=== PATIENT | female | born 1955 | race American Indian/Alaskan Native ===

== ENCOUNTER 2017-09-14 13:39 | Outpatient (CLI) | payer BC ==
--- NOTE | 2017-09-14 16:22 | Mammography Report ---
Stereotactic biopsy of the right breast, specimen mammogram, marker placement, 2 view mammogram: The patient presents with outside images demonstrating a large area of the intraductal appearing calcifications in the lateral breast. An area was targeted from a lateral approach. The skin was cleansed and 1% lidocaine infiltrated through the breast. An 8-gauge biopsy probe was used to penetrate the skin confirmed targeting. 8 sections were obtained around the clock. Specimen mammography confirmed calcifications in 7 of the 8 specimens. A marker was placed followed by removal of the biopsy probe. Hand held compression applied followed a bandaging of the entrance site. Followup two-view mammogram confirmed positioning of the marker in the anterior grouping of calcifications. A small surrounding soft tissue density consistent with hematoma. The patient was given followup instructions and discharged.
--- NOTE | 2017-09-14 16:29 | History and Physical Report ---
History of Present Illness Date of examination: 09/14/17 Chief complaint: rt.breast calcs. Medications and Allergies Allergies Allergy/AdvReac Type Severity Reaction Status Date / Time No Known Allergies Allergy Verified 10/09/15 12:22 Home Medications Medication Instructions Recorded Confirmed Last Taken Type Alpha Lipoic Acid 200 mg PO BID 09/10/15 09/10/15 10/09/15 History Aspirin EC [Aspirin Enteric Coated 81 mg PO DAILY 09/10/15 10/09/15 10/09/15 History TAB] AtorvaSTATin [Lipitor] 40 mg PO HS 09/10/15 10/09/15 10/09/15 History Dexlansoprazole (Nf) [Dexilant 60 mg PO DAILY 09/10/15 10/09/15 10/09/15 History (Nf)] Docosahexanoic Acid [Algal Pierceton-3 200 mg PO DAILY 09/10/15 10/09/15 10/09/15 History Dha] Metoprolol Xl [Metoprolol 25 mg PO QDAY 09/10/15 10/09/15 10/09/15 History SUCCINATE ER TAB] Clopidogrel Bisulfate [Clopidogrel] 75 mg PO DAILY 10/09/15 10/09/15 10/09/15 History
--- NOTE | 2017-09-14 16:30 | Procedure Note ---
Date of procedure: 09/14/17 Pre-op diagnosis: rt breast calcs. Post-op diagnosis: same Procedure: stereo bx Findings: calcs. Anesthesia: local Surgeon: DENNIS QUACH Estimated blood loss: minimal Pathology: list (rt. breast bx's) Specimen disposition: to lab Condition: stable Disposition: same day
== END 2017-09-14 13:40 | disposition home or self-care (01) ==
LOC: SPVWC 13:39
PROVIDERS: ATTEND Surgery
DX: D05.11 Intraductal carcinoma in situ of right breast (principal); R92.0 Mammographic microcalcification found on diagnostic imaging of breast; Z79.82 Long term (current) use of aspirin
CPT/HCPCS: 19081; 77065; 88305; 88342; 88361; A4648; 88341